=== PATIENT | female | born 1975 | race Caucasian/White ===

== ENCOUNTER 2019-01-22 06:18 | Inpatient (IN) | payer OTHER ==
[2019-01-22] MEDS: CEFAZOLIN 2 GM/50 ML (PMX) 50 ML IVPB (07:00)
[2019-01-22] MEDS: LACTATED RINGER'S 1,000 ML (ENTER RATE) IV (07:26)
[2019-01-22] MEDS ORDERED: FENTAnyl 50 MCG/ML VIAL IV ×2 (07:30)
[2019-01-22] MEDS ORDERED: HYDROmorphONE 1 MG/5 ML IV SYRINGE IV (07:30)
[2019-01-22] MEDS ORDERED: METOCLOPRAMIDE 10 MG INJ IV (07:30)
[2019-01-22] MEDS ORDERED: ALBUTEROL 0.083% (NEB) 2.5 MG/3 ML AMP HHN (07:30)
[2019-01-22] MEDS ORDERED: MIDAZOLAM 1 MG/ML 2 ML INJ (07:38)
[2019-01-22] MEDS ORDERED: FENTAnyl 50 MCG/ML VIAL ×2 (07:38→10:07)
[2019-01-22] MEDS ORDERED: morphine SULFATE/PF (10 MG/10 ML) INJ (08:06)
[2019-01-22] MEDS ORDERED: ROPIVACAINE 0.5 % 30 ML VIAL (08:27)
[2019-01-22] MEDS ORDERED: GLYCOPYRROLATE 0.4 MG INJ (08:33)
[2019-01-22] MEDS ORDERED: PROPOFOL 20 ML (09:55)
[2019-01-22] MEDS ORDERED: CEFAZOLIN 1 GM INJ (09:55)
[2019-01-22] MEDS ORDERED: ROCURONIUM 50 MG INJ (09:55)
[2019-01-22] MEDS ORDERED: SUCCINYLCHOLINE CHLORIDE 100 MG/5 ML SYG IV (09:55)
[2019-01-22] MEDS ORDERED: SUGAMMADEX SODIUM 200 MG/2 ML VIAL IV (09:55)
[2019-01-22] MEDS ORDERED: LIDOCAINE 100 MG SYRINGE (09:55)
[2019-01-22] MEDS: DIPHENHYDRAMINE 50 MG INJ IV (10:53)
[2019-01-22] MEDS: FENTAnyl 50 MCG/ML VIAL IV ×2 (10:53→11:00)
[2019-01-22] MEDS ORDERED: ONDANSETRON INJ 6 MG in DEXTROSE 5% 50 ML IVPB (11:00)
[2019-01-22] MEDS ORDERED: DIPHENHYDRAMINE 50 MG CAP PO (11:00)
[2019-01-22] MEDS ORDERED: HYDROCODONE/APAP (5/325) TAB PO (11:00)
[2019-01-22] MEDS ORDERED: ZOLPIDEM 5 MG TAB PO (11:00)
[2019-01-22] MEDS: MEPERIDINE 25 MG INJ IV (11:08)
[2019-01-22] MEDS: ONDANSETRON 4 MG INJ IV (11:08)
[2019-01-22] MEDS: HYDROmorphONE 1 MG/5 ML IV SYRINGE IV ×4 (11:37→16:09)
[2019-01-22] MEDS: METOCLOPRAMIDE 10 MG TAB PO ×3 (12:00→23:30)
[2019-01-22] MEDS: SOD CHLORIDE 0.9% 100 ML (13:55)
[2019-01-22] MEDS: CEFAZOLIN 1 GM/50 ML (PMX) 50 ML IVPB ×2 (14:00→21:50)
[2019-01-22] MEDS: IOHEXOL 300MG/ML 150 ML BTL (14:00)
[2019-01-22] MEDS: KETOROLAC 30 MG INJ IV ×3 (17:00→23:32)
[2019-01-22] MEDS: HYDROCODONE/APAP (5/325) TAB PO (18:08)
[2019-01-22] MEDS: LACTATED RINGER'S 1,000 ML IV ×2 (18:12→18:32)
[2019-01-22] MEDS: ENOXAPARIN 30 MG/0.3 ML SYG SC (21:00)
[2019-01-23] MEDS: LACTATED RINGER'S 1,000 ML IV ×2 (02:32→05:35)
[2019-01-23] MEDS: HYDROCODONE/APAP (5/325) TAB PO ×3 (04:52→16:06)
[2019-01-23] MEDS: CEFAZOLIN 1 GM/50 ML (PMX) 50 ML IVPB (04:54)
[2019-01-23 05:18] LABS: ADD MAN DIFF? NO
[2019-01-23 05:23] LABS: WHITE BLOOD COUNT 8.4 10^3/ul (4.8-10.8)
[2019-01-23 05:23] LABS: BASOPHILS % 0.5 % (0.0-2.0); EOSINOPHILS # 0.1 10^3/ul (0.0-0.5); EOSINOPHILS % 1.2 % (0.0-7.0); HEMATOCRIT 33.6 % (37.0-47.0); HEMOGLOBIN 10.5 g/dl (12.0-16.0); LYMPHOCYTES # 1.5 10^3/ul (0.8-2.9); LYMPHOCYTES % 17.8 % (15.0-51.0); MEAN CORPUSCULAR HEMOGLOBIN 28.1 pg (29.0-33.0); MEAN CORPUSCULAR HGB CONC 31.3 g/dl (32.0-37.0); MEAN CORPUSCULAR VOLUME 89.8 fl (82.0-101.0); MEAN PLATELET VOLUME 11.3 fl (7.4-10.4); MONOCYTE # 0.9 10^3/ul (0.3-0.9); NEUTROPHIL # 5.8 10^3/ul (1.6-7.5); PLATELET COUNT 214 10^3/UL (140-415); RED BLOOD COUNT 3.74 10^6/ul (4.20-5.40); RED CELL DISTRIBUTION WIDTH 12.9 % (11.5-14.5)
[2019-01-23] MEDS: KETOROLAC 30 MG INJ IV ×4 (05:31→23:31)
[2019-01-23] MEDS: METOCLOPRAMIDE 10 MG TAB PO ×4 (05:31→23:33)
[2019-01-23 05:38] LABS: ANION GAP 4 (5-13); BLOOD UREA NITROGEN 2 mg/dl (7-20); CARBON DIOXIDE 29 mmol/L (21-31); CHLORIDE 106 mmol/L (97-110); POTASSIUM 4.1 mmol/L (3.5-5.1); SODIUM 139 mmol/L (135-144)
[2019-01-23] MEDS: ENOXAPARIN 30 MG/0.3 ML SYG SC ×2 (09:27→21:00)
[2019-01-23] MEDS ORDERED: oxyCODONE (CR) 15 MG TAB [oxyCONTIN] PO (21:30)
[2019-01-23] MEDS: oxyCODONE 15 MG TAB PO (21:54)
[2019-01-24] MEDS: oxyCODONE 15 MG TAB PO ×3 (03:49→21:49)
[2019-01-24] MEDS: METOCLOPRAMIDE 10 MG TAB PO ×3 (05:13→17:40)
[2019-01-24] MEDS: KETOROLAC 30 MG INJ IV ×3 (05:16→21:25)
[2019-01-24] MEDS: ENOXAPARIN 30 MG/0.3 ML SYG SC ×2 (09:00→21:34)
[2019-01-24] MEDS: BISACODYL (EC) 5 MG TAB PO (12:40)
[2019-01-25] MEDS: METOCLOPRAMIDE 10 MG TAB PO ×3 (05:27→12:00)
[2019-01-25] MEDS: KETOROLAC 30 MG INJ IV (08:23)
[2019-01-25] MEDS: oxyCODONE 15 MG TAB PO (08:42)
[2019-01-25] MEDS: ENOXAPARIN 30 MG/0.3 ML SYG SC (08:44)
== END 2019-01-25 13:54 | disposition home or self-care (01) | DRG 742 ==
LOC: REC 06:18 → MS1 16:47
PROC: 0UT90ZZ Resection of Uterus, Open Approach (ICD-10-PCS; principal; 2019-01-22 07:58)
PROC: 0UT70ZZ Resection of Bilateral Fallopian Tubes, Open Approach (ICD-10-PCS; 2019-01-22 07:58)
PROC: 0UT10ZZ Resection of Left Ovary, Open Approach (ICD-10-PCS; 2019-01-22 07:58)
DX: N80.0 Endometriosis of uterus (principal); Z68.41 Body mass index [BMI] 40.0-44.9, adult; E66.01 Morbid (severe) obesity due to excess calories; N92.1 Excessive and frequent menstruation with irregular cycle; N73.1 Chronic parametritis and pelvic cellulitis; N94.89 Other specified conditions associated with female genital organs and menstrual cycle; D25.1 Intramural leiomyoma of uterus
CPT/HCPCS: 74176; 74178; 80051; 82565; 84520; 85025; 86850; 86900; 86901; 86920; 87086; 88307